=== PATIENT | male | born 1940 | race Caucasian/White ===

== ENCOUNTER 2017-02-02 16:47 | Inpatient (IN) | payer MEDICARE ==
[~2017-02-02] VITALS: Ht 175.3 cm; Wt 87.0 kg
[2017-02-02 16:50] VITALS: BP 135/75; PULSE 62; RESP 20; TEMP 98.4; O2SAT 98
[2017-02-02] MEDS ORDERED: LISI10TA3 PO (17:21)
[2017-02-02] MEDS ORDERED: CARV6.252 PO (17:21)
[2017-02-02] MEDS ORDERED: MULTTAB67 PO (17:21)
[2017-02-02] MEDS ORDERED: ATOR20TA15 PO (17:21)
[2017-02-02] MEDS ORDERED: ASPI81CH CHEW ×2 (17:21)
[2017-02-02] MEDS ORDERED: FURO20TA PO (17:21)
[2017-02-02] MEDS ORDERED: AMLO5TAB2 PO (17:21)
[2017-02-02] MEDS ORDERED: FISHCAP4 PO (17:21)
[2017-02-02] MEDS ORDERED: MAGN400T2 PO (17:21)
[2017-02-02] MEDS ORDERED: AMIO0.1T PO (17:21)
[2017-02-02] MEDS ORDERED: METO100T PO (17:21)
[2017-02-02] MEDS ORDERED: SODIUM CHLORIDE 0.9% FLUSH 10 ML FLUSH IVF PRN (17:30)
--- NOTE | 2017-02-02 17:31 | PD ---
HPI Chief Complaint: Cardiac Complaint Time Seen by Provider: 17:10 Travel History International Travel<30 days: No Contact w/Intl Traveler<30days: No Traveled to known affect area: No History of Present Illness HPI Patient was sent by his local sales associate for admission to the hospital after his defibrillator is firing intermittently over the past 2 weeks with exertion. Patient's supposed have an ablation and pacemaker replaced per family. Patient denies any symptoms currently. Patient denies any chest pain, shortness breath , fever, nausea, vomiting, abdominal pain, or headaches. Patient denies any other medical concerns at this time. PFSH Past Medical History Hx Anticoagulant Therapy: Yes (162 APSIRIN A DAY) Arthritis: No Asthma: No Autoimmune Disease: No Heart Rhythm Problems: No Cardiovascular Problems: Yes (PACER/DEFIB) Chest Pain: Yes Congestive Heart Failure: No COPD: No Cerebrovascular Accident: No Diabetes: No GERD: No Glaucoma: No Headaches: No Hepatitis: No Hiatal Hernia: No Hypertension: Yes Kidney Stones: No Medical other: Yes (pace/defib) Myocardial Infarction: No Renal Failure: No Seizures: No Sleep Apnea: No Thyroid Disease: No Ulcer: No Past Surgical History Abdominal Surgery: No AICD: No Cardiac Surgery: No Coronary Artery Bypass Graft: Yes Ear Surgery: No Endocrine Surgery: No Eye Surgery: No Genitourinary Surgery: No Gynecologic Surgery: No Oral Surgery: No Pacemaker: No Thoracic Surgery: No Social History Alcohol Use: No Tobacco Use: No Substance Use: No Allergies-Medications (Allergen,Severity, Reaction): Coded Allergies: Corticosteroids (Verified Allergy, Intermediate, 02/02/17) hallucinations Reported Meds & Prescriptions Reported Meds & Active Scripts Active Reported Metoprolol Tartrate 100 Mg Tab 100 Mg PO BID Atorvastatin (Atorvastatin Calcium) 20 Mg Tab 20 Mg PO HS Amlodipine (Amlodipine Besylate) 5 Mg Tab 5 Mg PO DAILY Carvedilol 6.25 Mg Tab 6.25 Mg PO BID Amiodarone (Amiodarone HCl) 100 Mg Tab 100 Mg PO BID Lisinopril 10 Mg Tab 10 Mg PO DAILY Furosemide 20 Mg Tab 20 Mg PO DAILY Magnesium Oxide 400 Mg Tab 400 Mg PO DAILY Multiple Vitamin 1 Tab 1 Tab PO DAILY Fish Oil + D3 (Fish Oil-Cholecalciferol) 1,200-1,000 Mg-Unit Cap 1 Cap PO DAILY Aspirin 81 Mg Chew 162 Mg CHEW DAILY Aspirin 81 Mg Chew 81 Mg CHEW DAILY Review of Systems Except as stated in HPI: all other systems reviewed are Neg Physical Exam Narrative GENERAL: Well-developed, overly nourished, in no acute distress, and non-ill appearing. SKIN: Focused skin assessment warm and dry. HEAD: Atraumatic. Normocephalic. ENT: No nasal bleeding or discharge. Mucous membranes pink and moist. NECK: Trachea midline. No JVD. Supple. No nuclear rigidity. CARDIOVASCULAR: Regular rate and rhythm. No murmur appreciated. RESPIRATORY: No accessory muscle use. No respiratory distress. Clear to auscultation. Breath sounds equal bilaterally. MUSCULOSKELETAL: No obvious deformities. No clubbing. No cyanosis. No edema. Full range of motion. NEUROLOGICAL: Awake and alert. No obvious cranial nerve deficits. Motor grossly within normal limits. Normal speech. PSYCHIATRIC: Appropriate mood and affect; insight and judgment normal. Data Data Last Documented VS Vital Signs Date Time Temp Pulse Resp B/P Pulse Ox O2 Delivery O2 Flow Rate FiO2 02/02/17 17:32 97 Room Air 02/02/17 16:50 98.4 62 20 135/75 Orders Electrocardiogram (02/02/17 17:20) Basic Metabolic Panel (Bmp) (02/02/17 17:20) Complete Blood Count With Diff (02/02/17 17:20) Magnesium (Mg) (02/02/17 17:20) Prothrombin Time / Inr (Pt) (02/02/17 17:20) Act Partial Throm Time (Ptt) (02/02/17 17:20) Chest, Single Ap (02/02/17 17:20) Ecg Monitoring (02/02/17 17:20) Iv Access Insert/Monitor (02/02/17 17:20) Oximetry (02/02/17 17:20) Oxygen Administration (02/02/17 17:20) Sodium Chloride 0.9% Flush (Ns Flush) (02/02/17 17:30) Consult Cardiology (02/02/17 ) (Hub Use Only)In Phy Cons/Ref (02/02/17 ) Labs Laboratory Tests Test 02/02/17 17:30 White Blood Count 11.9 TH/MM3 Red Blood Count 4.56 MIL/MM3 Hemoglobin 14.1 GM/DL Hematocrit 43.1 % Mean Corpuscular Volume 94.5 FL Mean Corpuscular Hemoglobin 30.9 PG Mean Corpuscular Hemoglobin 32.7 % Concent Red Cell Distribution Width 13.7 % Platelet Count 187 TH/MM3 Mean Platelet Volume 9.2 FL Neutrophils (%) (Auto) 76.6 % Lymphocytes (%) (Auto) 14.7 % Monocytes (%) (Auto) 6.4 % Eosinophils (%) (Auto) 1.7 % Basophils (%) (Auto) 0.6 % Neutrophils # (Auto) 9.1 TH/MM3 Lymphocytes # (Auto) 1.7 TH/MM3 Monocytes # (Auto) 0.8 TH/MM3 Eosinophils # (Auto) 0.2 TH/MM3 Basophils # (Auto) 0.1 TH/MM3 CBC Comment DIFF FINAL Differential Comment Prothrombin Time 10.6 SEC Prothromb Time International 1.0 RATIO Ratio Activated Partial 24.0 SEC Thromboplast Time Sodium Level 142 MEQ/L Potassium Level 3.9 MEQ/L Chloride Level 106 MEQ/L Carbon Dioxide Level 29.7 MEQ/L Anion Gap 6 MEQ/L Blood Urea Nitrogen 29 MG/DL Creatinine 1.95 MG/DL Estimat Glomerular Filtration 33 ML/MIN Rate Random Glucose 128 MG/DL Calcium Level 9.1 MG/DL Magnesium Level 2.5 MG/DL MDM Medical Decision Making Medical Screen Exam Complete: Yes Emergency Medical Condition: Yes Interpretation(s) EKG reviewed by Dr. William shows paced rhythm with ventricular rate of 66. Differential Diagnosis Chest pain secondary to defibrillator misfiring, flexion abnormality, pneumonia , other Narrative Course Patient was seen and examined. Initial laboratory radiologic studies were ordered. Discussed patient with Dr. Gunn, who does not feel there any additional tests needed to be performed and states he will patient in consult is wanting medicine to admit. Admitting was contacted to try and find admitting orders patient's family reports was sent over, but they were not able to be found. Discussed all findings and plan of care with patient who is agreeable for admission. All questions were answered. Discussed patient with Dr. William , who is in agreement with plan of care and disposition. Physician Communication Physician Communication [address] Gunn, is not requesting additional testing than what was already ordered. States he'll come by and see the patient in the ER as a consult. [id number] Collins, who is agreeable to admit the patient. Diagnosis Primary Impression: Disorder of defibrillator function Qualified Code: T82.198D - Disorder of defibrillator function, subsequent encounter Additional Impression: Renal insufficiency Admitting Information Admitting Physician Requests: Admit Condition: Stable Phoenix Hester Feb 02, 2017 17:31
[2017-02-02 17:32] VITALS: O2SAT 97
[2017-02-02 17:54] LABS: AUTOMATED NEUTROPHIL # 9.1 TH/MM3 (1.8-7.7); BASOPHIL # 0.1 TH/MM3 (0-0.2); BASOPHIL % 0.6 % (0.0-2.0); EOSINOPHIL # 0.2 TH/MM3 (0-0.4); EOSINOPHIL % 1.7 % (0.0-4.0); HEMATOCRIT 43.1 % (39.0-51.0); HEMO FLAGS DIFF FINAL; LYMPH % 14.7 % (9.0-44.0); LYMPHOCYTE # 1.7 TH/MM3 (1.0-4.8); MEAN CELL VOLUME 94.5 FL (80.0-100.0); MEAN CORPUSCULAR HEMOGLOBIN 30.9 PG (27.0-34.0); MEAN CORPUSCULAR HGB CONC 32.7 % (32.0-36.0); MONO % 6.4 % (0.0-8.0); NEUT % 76.6 % (16.0-70.0); PLATELET COUNT 187 TH/MM3 (150-450); RED BLOOD COUNT 4.56 MIL/MM3 (4.50-5.90); RED CELL DISTRIBUTION WIDTH 13.7 % (11.6-17.2); WHITE BLOOD COUNT 11.9 TH/MM3 (4.0-11.0)
[2017-02-02 18:03] LABS: PROTHROMBIN TIME - PATIENT 10.6 SEC (9.8-11.6)
--- NOTE | 2017-02-02 18:05 | RADRPT ---
EXAM DATE/TIME: 02/02/2017 17:33 [facility] COMPARISON: No previous studies available for comparison. INDICATIONS : Chest pain MEDICAL HISTORY : Hypertension. SURGICAL HISTORY : CABG. Pacemaker. ENCOUNTER: Initial ACUITY: 1 day PAIN SCORE: 4/10 LOCATION: Bilateral chest FINDINGS: Median sternotomy wires are noted status post cardiac surgery. A left subclavian multilead pacemaker has its tips in the right atrium and right ventricle. There is no pneumothorax. The heart is mildl y prominent. The pulmonary vascular pattern is normal. The lungs are clear. CONCLUSION: 1. Cardiomegaly. 2. No acute focal pulmonary infiltrate or pulmonary vascular congestion. Duncan Ortiz MD on February 02, 2017 at 17:58 Board Certified Radiologist. This report was verified electronically.
[2017-02-02 18:22] LABS: BICARBONATE 29.7 MEQ/L (21.0-32.0); MAGNESIUM 2.5 MG/DL (1.5-2.5); POTASSIUM 3.9 MEQ/L (3.5-5.1)
[2017-02-02] MEDS ORDERED: NS + KCL 20 MEQ INJ 1,000 ML IV SCH (20:30)
--- NOTE | 2017-02-02 20:33 | HHI.HP ---
HPI Service [facility] Hospitalists Primary Care Physician Vicente Cohen MD Admission Diagnosis chest pain secondary to defibrillator firing Chief Complaint: Defib firing, sent from his lisw's office (DR COHEN) Travel History International Travel<30 Days: No Contact w/Intl Traveler <30 Da: No Traveled to Known Affected Are: No History of Present Illness Patient with known history of coronary disease and status post defibrillator placement in April 2016 was sent by his lisw for admission to the hospital after his defibrillator has been firing intermittently over the past 2 weeks with or without exertion. He reports that he has had up to 18 firings of device in 1 day. Patient's was supposed have an ablation and pacemaker replaced per family today. Patient denies any symptoms currently, but notes that he does have chest pressure and pain when the defibrillator fires. Patient denies any chest pain, shortness breath, fever, nausea, vomiting, abdominal pain, or headaches. On my exam he is resting comfortably and having no pain whatsoever. He is just anxious to have the procedure done as he is understandably worried about the recurrent somewhat unpredictable firings of his device. Review of Systems Constitutional: DENIES: Diaphoretic episodes, Fatigue, Fever, Weight gain, Weight loss, Chills, Dizziness, Change in appetite, Night Sweats Endocrine: DENIES: Heat/cold intolerance, Polydipsia, Polyuria, Polyphagia Eyes: DENIES: Blurred vision, Diplopia, Eye inflammation, Eye pain, Vision loss , Photosensitivity, Double Vision Ears, nose, mouth, throat: DENIES: Tinnitus, Hearing loss, Vertigo, Nasal discharge, Oral lesions, Throat pain, Hoarseness, Ear Pain, Running Nose, Epistaxis, Sinus Pain, Toothache, Odynophagia Respiratory: DENIES: Apneas, Cough, Snoring, Wheezing, Hemoptysis, Sputum production, Shortness of breath Cardiovascular: COMPLAINS OF: Chest pain, DENIES: Palpitations, Syncope, Dyspnea on Exertion, PND, Lower Extremity Edema, Orthopnea, Claudication Gastrointestinal: DENIES: Abdominal pain, Black stools, Bloody stools, BRB per rectum, Constipation, Diarrhea, GERD, Nausea, Reflux, Vomiting, Difficulty Swallowing, Anorexia, See HPI Musculoskeletal: COMPLAINS OF: Joint pain Integumentary: DENIES: Abnormal pigmentation, Nail changes, Pruritus, Rash Hematologic/lymphatic: COMPLAINS OF: Bruising Neurologic: DENIES: Abnormal gait, Headache, Localized weakness, Paresthesias, Seizures, Speech Problems, Tremor, Poor Balance Psychiatric: COMPLAINS OF: Anxiety Past Family Social History Past Medical History Hypertension Coronary artery disease with prior [place] Questionable history of CHF after the [place] Prediabetes Dyslipidemia Hypomagnesemia Dysrhythmia Past Surgical History Coronary Stent placed in approximately 2006 Pacer defibrillator placement April 2016 Coronary artery bypass graft 4 vessels around 2011 Appendectomy Reported Medications Metoprolol Tartrate 100 Mg Tab 100 Mg PO BID Atorvastatin (Atorvastatin Calcium) 20 Mg Tab 20 Mg PO HS Amlodipine (Amlodipine Besylate) 5 Mg Tab 5 Mg PO DAILY Carvedilol 6.25 Mg Tab 6.25 Mg PO BID Amiodarone (Amiodarone HCl) 100 Mg Tab 100 Mg PO BID Lisinopril 10 Mg Tab 10 Mg PO DAILY Furosemide 20 Mg Tab 20 Mg PO DAILY Magnesium Oxide 400 Mg Tab 400 Mg PO DAILY Multiple Vitamin 1 Tab 1 Tab PO DAILY Fish Oil + D3 (Fish Oil-Cholecalciferol) 1,200-1,000 Mg-Unit Cap 1 Cap PO DAILY Aspirin 81 Mg Chew 162 Mg CHEW DAILY Aspirin 81 Mg Chew 81 Mg CHEW DAILY Allergies: Coded Allergies: Corticosteroids (Verified Allergy, Intermediate, 02/02/17) hallucinations Family History No heart disease to his knowledge Social History Born and raised in [place] No tobacco in 30 years prior to that smoked about half to three quarters of a pack per day for about 25 years Occasionally drinks wine but no other alcohol Denies illicit drug use Lives with his and they've been for nearly 55 years 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 SKIN: No rashes, ecchymoses or lesions. Cool and dry. HEAD: Atraumatic. Normocephalic. No temporal or scalp tenderness. EYES: Pupils equal round and reactive. Extraocular motions intact. No scleral icterus. No injection or drainage. ENT: Nose without bleeding, purulent drainage or septal hematoma. Throat without erythema, tonsillar hypertrophy or exudate. Uvula midline. Airway patent. NECK: Trachea midline. No JVD or lymphadenopathy. Supple, nontender, no meningeal signs. CARDIOVASCULAR: Regular rate and rhythm without murmurs, gallops, or rubs. RESPIRATORY: Clear to auscultation. Breath sounds equal bilaterally. No wheezes , rales, or rhonchi. GASTROINTESTINAL: Abdomen soft, non-tender, nondistended. No hepato-splenomegaly , or palpable masses. No guarding. MUSCULOSKELETAL: Extremities without clubbing, cyanosis, or edema. No joint tenderness, effusion, or edema noted. No calf tenderness. Negative Homans sign bilaterally. NEUROLOGICAL: Awake and alert. Cranial nerves II through XII intact. Motor and sensory grossly within normal limits. Five out of 5 muscle strength in all muscle groups. Normal speech. Laboratory Laboratory Tests Test 02/02/17 17:30 White Blood Count 11.9 Red Blood Count 4.56 Hemoglobin 14.1 Hematocrit 43.1 Mean Corpuscular Volume 94.5 Mean Corpuscular Hemoglobin 30.9 Mean Corpuscular Hemoglobin 32.7 Concent Red Cell Distribution Width 13.7 Platelet Count 187 Mean Platelet Volume 9.2 Neutrophils (%) (Auto) 76.6 Lymphocytes (%) (Auto) 14.7 Monocytes (%) (Auto) 6.4 Eosinophils (%) (Auto) 1.7 Basophils (%) (Auto) 0.6 Neutrophils # (Auto) 9.1 Lymphocytes # (Auto) 1.7 Monocytes # (Auto) 0.8 Eosinophils # (Auto) 0.2 Basophils # (Auto) 0.1 CBC Comment DIFF FINAL Differential Comment Prothrombin Time 10.6 Prothromb Time International 1.0 Ratio Activated Partial 24.0 Thromboplast Time Sodium Level 142 Potassium Level 3.9 Chloride Level 106 Carbon Dioxide Level 29.7 Anion Gap 6 Blood Urea Nitrogen 29 Creatinine 1.95 Estimat Glomerular Filtration 33 Rate Random Glucose 128 Calcium Level 9.1 Magnesium Level 2.5 Result Diagram: 02/02/17 1730 02/02/17 1730 Imaging Last 72 hours Impressions Chest X-Ray 02/02/17 1720 Signed Impressions: Service Date/Time: Thursday, February 02, 2017 17:33 - CONCLUSION: 1. Cardiomegaly. 2. No acute focal pulmonary infiltrate or pulmonary vascular congestion. Duncan Ortiz MD Assessment and Plan Problem List: (1) Disorder of defibrillator function Status: Acute Plan: We have been asked to admit the patient to the medicine service by Dr. Cohen per discussion with ER healthcare provider. This issue will obviously be managed primarily by Dr. Cohen Continue on telemetry. (2) Renal insufficiency Status: Acute Plan: I do not know the patient's baseline. We'll gently hydrate overnight and recheck tomorrow. Like to keep his potassium between 4 and 5. (3) Hypertension Status: Chronic Plan: Fair control. Continue some of his medication from home. (4) Dyslipidemia Status: Chronic Plan: Continue medication. (5) Prediabetes Status: Chronic Plan: No longer on metformin. We'll watch diet closely. Outpatient follow-up. Code Status . Full Discussed Condition With Patient, his , his daughter and ER healthcare provider. Physician Certification 2 Midnight Certification Type: Admission for Inpatient Services Order for Inpatient Services The services are ordered in accordance with Medicare regulations or non- Medicare payer requirements, as applicable. In the case of services not specified as inpatient-only, they are appropriately provided as inpatient services in accordance with the 2-midnight benchmark. Estimated LOS (days): 2 days is the estimated time the patient will need to remain in the hospital, assuming treatment plan goals are met and no additional complications. Post-Hospital Plan: Home Problem Qualifiers (1) Disorder of defibrillator function: Qualified Code: T82.198D - Disorder of defibrillator function, subsequent encounter Guru Collins MD PhD Feb 02, 2017 20:33
[2017-02-02] MEDS ORDERED: PILL SPLITTER OTHER PRN (20:45)
[2017-02-02 21:30] VITALS: BP 142/76; PULSE 64; RESP 18; TEMP 98.6; O2SAT 97
--- NOTE | 2017-02-02 21:57 | EKG ---
Date Performed: 02/02/2017 Time Performed: 17:13:42 PTAGE: 76 years EKG: ELECTRONIC ATRIAL PACEMAKER ELECTRONIC VENTRICULAR PACEMAKER ABNORMAL RHYTHM ECG NO PREVIOUS TRACING DOCTOR: Jaylen Gibbs Interpretating Date/Time 02/02/2017 21:56:45
[2017-02-02 22:00] VITALS: PULSE 64
[2017-02-02 22:24] LABS: MAGNESIUM 2.5 MG/DL (1.5-2.5)
[2017-02-02] MEDS: ATORVASTATIN 20 MG TAB PO SCH (22:30)
[2017-02-02] MEDS: AMIODARONE 200 MG TAB PO SCH (22:30)
[2017-02-02 23:00] VITALS: PULSE 62
[2017-02-03] VITALS (29 sets, daily range): BP systolic 103–145; BP diastolic 52–80; PULSE 42–76; RESP 18–20; TEMP 97.2–98.2; O2SAT 95–100
[2017-02-03] MEDS: TEMAZEPAM 15 MG CAP PO PRN ×2 (00:06→21:28)
[2017-02-03 06:32] LABS: ALKALINE PHOSPHATASE 55 U/L (45-117); TOTAL BILIRUBIN ADULT 0.5 MG/DL (0.2-1.0)
[2017-02-03 06:34] LABS: ALT (GPT) 28 U/L (12-78); ANION GAP 6 MEQ/L (5-15); AST (GOT) 22 U/L (15-37); BICARBONATE 30.1 MEQ/L (21.0-32.0); BLOOD UREA NITROGEN 27 MG/DL (7-18); CHLORIDE 111 MEQ/L (98-107); GLOMERULAR FILTRATION RATE 42 ML/MIN (>89); POTASSIUM 4.2 MEQ/L (3.5-5.1); SODIUM (NA) 147 MEQ/L (136-145)
--- NOTE | 2017-02-03 08:15 | HHI.PR ---
Subjective Remarks doing great. feels well. Objective Vitals heart reg lung cta abd s/nt ext no edema Vital Signs Date Time Temp Pulse Resp B/P Pulse Ox O2 Delivery O2 Flow Rate FiO2 02/03/17 07:00 64 02/03/17 07:00 97.6 72 20 132/78 99 02/03/17 06:00 68 02/03/17 05:00 64 02/03/17 04:30 65 02/03/17 04:30 97.9 67 18 130/76 100 02/03/17 04:00 70 02/03/17 03:00 66 02/03/17 02:00 64 02/03/17 01:00 66 02/03/17 00:30 97.2 76 18 119/66 98 02/02/17 23:00 62 02/02/17 22:00 64 02/02/17 21:30 98.6 64 18 142/76 97 02/02/17 21:30 64 02/02/17 17:32 97 Room Air 02/02/17 17:32 97 Room Air 02/02/17 16:50 98.4 62 20 135/75 98 Room Air 02/02/17 02/02/17 02/03/17 15:00 23:00 07:00 Intake Total 1003 ml Output Total 150 ml Balance 853 ml Intake Oral 480 ml IV Total 523 ml Output Urine Total 150 ml Result Diagram: 02/02/17 1730 02/03/17 0446 Imaging Last 72 hours Impressions Chest X-Ray 02/02/17 1720 Signed Impressions: Service Date/Time: Thursday, February 02, 2017 17:33 - CONCLUSION: 1. Cardiomegaly. 2. No acute focal pulmonary infiltrate or pulmonary vascular congestion. 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 currently paced on monitor last firing was yesterday on way to ED. await further management per Dr Velia dewey current meds. (2) Renal insufficiency Status: Acute Plan: shorty improved with ivf. monitor. (3) Hypertension Status: Chronic Plan: resume home meds monitor (4) Dyslipidemia Status: Chronic Plan: Continue medication. (5) Prediabetes Status: Chronic Plan: No longer on metformin. Problem Qualifiers (1) Disorder of defibrillator function: Qualified Code: T82.198D - Disorder of defibrillator function, subsequent encounter Lakhwinder Sommers MD Feb 03, 2017 08:14
[2017-02-03] MEDS: ASPIRIN 81 MG CHEW TAB CHEW SCH (09:18)
[2017-02-03] MEDS: LISINOPRIL 10 MG TAB PO SCH (09:18)
[2017-02-03] MEDS: MULTIVITAMIN TAB PO SCH (09:19)
[2017-02-03] MEDS: MAGNESIUM OXIDE 400 MG TAB PO SCH (09:19)
[2017-02-03] MEDS: AMIODARONE 200 MG TAB PO SCH ×2 (09:19→21:28)
[2017-02-03] MEDS ORDERED: SODIUM CHLORID 0.9% 500 ML INJ 500 ML IV SCH ×2 (13:00)
--- NOTE | 2017-02-03 13:18 | MB ---
cc: GERTRUDE COHEN M.D. DATE OF CONSULTATION 02/03/2017 REASON FOR CONSULTATION Recurrent defibrillatory shock. HISTORY Mr. Lozano is a 76-year-old gentleman with a history of coronary artery disease. He has a previous defibrillator implanted in April 2016 due to recurrent ventricular tachycardia. For the past couple of weeks, he was having recurrent defibrillatory shock. Nuclear stress study was performed that indicated unstable anterolateral scar and no ischemia. The patient was discharged from the main hospital. Yesterday he receive at least three defibrillatory shock. Device was reprogrammed. All the ventricular tachycardia was in the 130s. The patient was admitted for evaluation. I was consulted for further management. The chart was reviewed. The patient was evaluated. ALLERGIES CORTICAL STEROIDS SOCIAL HISTORY Negative for smoking and drinking. FAMILY HISTORY Noncontributory to his current medical condition. MEDICATIONS 1. Metoprolol 100 mg twice a day 2. Atorvastatin and 20 mg a day 3. Amlodipine 5 mg a day 4. Coreg 6.25 mg a day 5. Amiodarone 100 mg twice a day 6. Lisinopril 10 mg a day 7. Lasix 20 mg a day 8. Magnesium 9. Aspirin REVIEW OF SYSTEMS Currently, the patient refers recurrent episode of dizziness and palpitation and defibrillatory shock, but no fever. PHYSICAL EXAM Alert, fully oriented gentleman who is depressed. VITAL SIGNS: Blood pressure is 126/69, pulse 71, respiratory rate is 18. LUNGS: Ventilated. CARDIOVASCULAR: S1-S2 regular. No gallop. ABDOMEN: Soft. No mass. EXTREMITIES: No edema. Electrocardiogram shows AV sequential pacing. LABORATORY DATA Hemoglobin is 14.1, white blood cell 11.9, potassium 4.2, creatinine 1.60 improving. INR is 1.0. ASSESSMENT AND RECOMMENDATIONS Mr. Lozano has recurrent defibrillatory shock. He has slow VT. He is on amiodarone, metoprolol and Coreg. He is on two different beta blockers. I will DC the Coreg and keep him on the Metoprolol. Electrophysiology study and ablation discussed with him and his family. Ejection fraction is 15%. The risks, the nature and the benefit of the procedure are clearly stated to them. The risks include pneumothorax, cardiac perforation, stroke and even . They understood and agreed to proceed. Also, the gentleman has a wide prior complexed pacing over 40% of the time. He is in heart failure class III. The defibrillator will need to be upgraded to a biventricular pacer defibrillator. First I am going to proceed with VT ablation and then subsequently device will be upgraded in another day. This gentleman's condition is of care. Prognosis is guarded. As mentioned before, the case extensively discussed with him, his and his daughter. MD CORBIN Lr/SONAM /1:00 PM /1:15 PM
[2017-02-03] MEDS ORDERED: PROPOFOL 200 MG/20 ML AMP IV ONE (15:01)
[2017-02-03] MEDS ORDERED: IOHEXOL 350 MG/ML 50 ML BTL (for Cath Lab) IV ONE (15:44)
[2017-02-03] MEDS ORDERED: HEPARIN-NS/PF INJ 500 ML ONE (15:47)
[2017-02-03] MEDS ORDERED: LEVOFLOXACIN 500 MG PREMIX INJ 100 ML IV ONE (16:40)
--- NOTE | 2017-02-03 18:44 | CATHPROC ---
[facility] HIS Report Study Information Study Number Scheduled Start Study Start [id number] 02/03/2017 Feb 03 2017 3:20PM Referring Institution Admit Source Facility Department 1 Other [facility] - Adjunct Writing Instructor Physician and Clinical Staff Initial Vicente Nava Corn Husker Machine Operator Bg Gaspar,RT(R) Corn Husker Machine Operator Marcia Dela Cruz,RT(R) TECH2 Other Anesthesia, MEDIA REPORTER Recorder Niya Pelaez,ALEXANDR Recorder Nathalia Romano,ALEXANDR Recorder Hellen Charles,ALEXANDR Scrub Frances Wheat RCIS Procedures Performed Procedure Location (Site) Vessel Name Ablation Procedure Cardioversion ICE CATHETER INSERT Fem Vein (left) Femoral Vein RF Ablation RV Ventricle Wire insertion Fem Art (right) Femoral Art Equipment Time [employer] Unified Communications Engineer Description Size Mfg Part Number Used/Scraped [employer] 17:10 SHEATH, FR8 24CM 8FR 24CM [id number] Used INC. BIOSENSE SMITH CATHETER, THERMOCOOL NON- [id number] 15:27 Used INC. DORETHA TC D-F *[id number] BIOSENSE SMITH 16:01 SET, TUBING COOLFLOW * [id number] Used INC. 534-550S *[id number] 15:26 CORDIS/PACER SHEATH, FR10 SHARMILA 11CM FR 10 [id number] Used WIRE, HYDROSTEER 150CM [id number] 17:00 DAIG/[facility] 150CM Used ANGLED GLIDE *[id number] 15:24 Relationship Science INDUSTRIES PACK, CCL CUSTOM * Used *[id number] 15:24 MEDLINE PACER DECKER, LIMB * 2530 *[id number] Used [id number] 15:26 reMail MEDICAL SHEATH, FR4.5 PRELUDE 11CM FR 4.5 Used [id number] 16:46 reMail MEDICAL WIRE, 3MMJ .035 180CM 180CM Used *[id number] 15:27 NAMIC TUBING, HIGH PRESSURE 48" 48" Used *[id number] 15:27 NAMIC TUBING, HIGH PRESSURE 48" 48" Used *[id number] 17:01 NYCOMED OMNIPAQUE, 350 MG, 50ML 50ML [id number] Used [id number] 15:24 [place] [employer] BL[employer]ET,WARM AIR CCL * Used *[id number] 16:47 [facility] CATHETER, JSN, QUAD FR 5 Used *[id number] 16:47 [facility] CATHETER, JSN, QUAD FR 5 Used *[id number] [id number] 16:47 [facility] CATHETER, JSN, QUAD FR 5 Used *[id number] 15:24 [facility] ELECTRODE KIT, DORETHA X SURFACE * [id number] Used 15:25 [facility] SHEATH, EPS, FR6 FAST CATH FR 6 [id number] Used 15:25 [facility] SHEATH, EPS, FR6 FAST CATH FR [address] [id number] Used 15:25 [facility] SHEATH, EPS, FR7 FAST CATH FR 7 [id number] Used 15:25 [facility] SHEATH, EPS, FR8 FAST CATH FR 8 [id number] Used CATHETER, ACUNAV FR10 ICE [id number] 15:27 [place] FR 10 Used (ELMIRA) *[id number] [facility] PAD, ELECTROSURGICAL 15:24 * [id number] *[id number] Used SURGICAL GROUNDING (BLUE) Equipment Model, Serial, Lot Number and Expiration Data Description Model Number Serial Number Lot Number Expiration Date SHEATH, FR4.5 PRELUDE 11CM [id number] 11-22-2019 Labs Hgb (g/dl) Hct (%) RBC (MIL/MM3) WBC (l/cumm) Platelets (thousands) 12.00-18.00 37.00-55.00 4.80-6.20 4.80-10.80 140.00-450.00 14.0 43 4.5 11.9 187 Glucose (mg/dl) BUN (mg/dl) Creatinine (mg/dl) BUN:Creatinine (1:x) 60.00-110.00 8.00-20.00 0.10-9.00 10.00-20.00 87 4.2 1.6 2.6 Na (meq/l) K (meq/l) 138.00-146.00 3.80-5.10 147 4.2 INR (PTT:PT) 0.50-2.00 1 CPK-MB (ng/ML) 0.00-7.00 Not Drawn Medication Medication Total Dose (Bolus/Oral) Medication Total Dosage/Unit 1% XYLOCAINE 20 mL HEPARIN 6000 units PROTAMINE 40 mg Medications (Bolus/Oral) Medication Time Given Dosage/Unit Administered By Reason 1% XYLOCAINE 02/03/2017 4:35:13 PM 20 mL Vicente Gunn 20 mL 1% XYLOCAINE given in lab by Vicente Gunn in Left Groin via Subcutaneous. HEPARIN 02/03/2017 4:43:18 PM 4000 units Anesthesia, MEDIA REPORTER 4000 units HEPARIN given in lab by Anesthesia, MEDIA REPORTER via Peripheral IV. Ordered by Vicente Gunn. HEPARIN 02/03/2017 5:28:22 PM 2000 units Anesthesia, MEDIA REPORTER 2000 units HEPARIN given in lab by Anesthesia, MEDIA REPORTER via Peripheral IV. Ordered by Vicente Gunn. PROTAMINE 02/03/2017 6:27:53 PM 40 mg Anesthesia, MEDIA REPORTER 40 mg PROTAMINE given in lab by Anesthesia, MEDIA REPORTER via Peripheral IV. Ordered by Vicente Gunn. Medication (Drip) Medication Time Given Dosage/Unit Concentration/Unit Diluent (ml) Solution LEVAQUIN 02/03/2017 4:44:27 PM 100 mL/hr 500 100 NaCl .9 100 mL/hr LEVAQUIN given in lab by Anesthesia, MEDIA REPORTER via Peripheral IV. Pump/Drip Flow = 0 ml/hr using NaCl .9 with a concentration of 500 in 100 ml. Ordered by Vicente Gunn. Initial Case Assessment Cardiovascular HR Rhythm NIBP Chest Pain 62 SR 177/84 0 Edema Present Skin color Skin None Normal Warm Dry Circulatory - Right Pulses Dorsalis Pedis Radial 2 2 Scale (0,1,2,3,4,d) Circulatory - Left Pulses Dorsalis Pedis Radial 2 2 Scale (0,1,2,3,4,d) Circulatory - Lower Extremities Color Lower Right Color Lower Left Normal Normal Neurological State Oriented to time-place- Alert Moves all extremities person Respiration - General Respiration Rate SpO2 (%) (B/min) 16 99 Chronological Log Time Study Chronological Log 15:44:07 Patient arrived via Bed. 15:44:08 Patient Name, D.O.B, / Armband Verified By R.N. 15:44:09 Consent signed by the physician and the patient and verified by the Adjunct Writing Instructor staff. 15:44:09 Pre-op and post- op instructions given; patient acknowledges understanding of instructions. 15:44:10 Verbal Stimulation=2 Physical Stimulation=2 Airway=2 Respiration=2 TOTAL=8. (0=absent, 1=li mited, 2=present) 15:44:11 Anesthesia at bedside. Assumes care of patient. PREMA Finney 15:44:15 Patient has been NPO for More than 6Hrs. 15:44:15 Skin Breakdown- none noted per pt. 15:44:16 Patient Warmer Placed on the Table. 15:44:17 Disposable Defibrillator Pads Placed On Patient. 15:44:18 Robert Prominences Protected 15:44:20 A # 20 IV was noted in the Antecubital (right). Grade = 0 0.9 NS KVO 15:44:21 A # 20 IV was noted in the Antecubital (left). Grade = 0 0.9NS KVO 15:44:22 History and physical on the chart or being dictated. 15:55:57 Presedation assessment performed by Adjunct Writing Instructor RN. Assessment: Initial Case, HR=62 BPM, Rhythm=SR, ZLFO=091/84 mmhg, Chest Pain=0, Edema=None, Col or=Normal, Skin = Warm, Dry Right Pulses: Sulaiman Ped=2, Radial=2 Left Pulses: Sulaiman Ped=2, Radial=2 15:56:22 Lower Right Extremities: Color=Normal Lower Left Extremities: Color=Normal Neurological: State=Alert, Ox3, JESUS Respiration: Resp=16 B/min, SpO2=99 % 15:58:18 Table restraints applied according to hospital policy 15:58:26 Bilateral groins prepped with 2% chlorhexidine, and with a 3 min. waiting time. 16:01:58 [address] off by [facility] rep per verbal order/Dr. Gunn 16:10:56 Anesthesiologist present for intubation. 16:17:27 MD paged 16:30:41 MD arrived. Time Out. Correct patient, procedure, procedure equipment, site and side verified with physicia n present. Time 16:34:16 concurred by MD, individual staff and MEDIA REPORTER. Time Out #2 - Consents verified, patient in correct position, all results are labled and displa yed, safety precautions 16:34:17 taken, antibiotics administered. Time out concurred by MD, individual staff and MEDIA REPORTER in procedu re 16:34:18 Case Start 16:34:22 Beginning of case Body Temp 36.7 16:35:13 20 mL 1% XYLOCAINE given in lab by Vicente Gunn in Left Groin via Subcutaneous. 16:38:48 Vascular access was obtained in the Fem Vein (left). 16:38:49 Vascular access was obtained in the Fem Vein (left). 16:38:50 Vascular access was obtained in the Fem Vein (left). 16:39:04 Vascular access was obtained in the Fem Art (right). 16:39:28 Vascular access was obtained in the Fem Art (left). 16:39:47 Vascular access was obtained in the Fem Vein (right). 16:39:54 A SHEATH, FR4.5 PRELUDE 11CM FR 4.5 was advanced into the Fem Art (right) using the Modifie d Seldinger technique. 16:40:11 A SHEATH, EPS, FR8 FAST CATH FR 8 was advanced into the Fem Art (left) using the Modified S eldinger technique. 16:40:33 A SHEATH, EPS, FR6 FAST CATH FR 6 was advanced into the Fem Vein (left) using the Modified Seldinger technique. 16:40:46 A SHEATH, EPS, FR7 FAST CATH FR 7 was advanced into the Fem Vein (left) using the Modified Seldinger technique. 16:40:56 A SHEATH, FR10 SHARMILA 11CM FR 10 was advanced into the Fem Vein (left) using the Modified S eldinger technique. 16:41:03 A SHEATH, EPS, FR6 FAST CATH FR 6 was advanced into the Fem Vein (right) using the Modified Seldinger technique. 16:43:18 4000 units HEPARIN given in lab by Anesthesia, MEDIA REPORTER via Peripheral IV. Ordered by Yimi Gunn. 100 mL/hr LEVAQUIN given in lab by Anesthesia, MEDIA REPORTER via Peripheral IV. Pump/Drip Flow = 0 ml/hr using NaCl .9 with 16:44:27 a concentration of 500 in 100 ml. Ordered by Vicente Gunn. A CATHETER, JSN, QUAD FR 5 was advanced vis Fem Vein (left) and placed in the CS. Placement was visually 16:46:12 confirmed under fluoroscopy. A CATHETER, JSN, QUAD FR 5 was advanced vis Fem Vein (left) and placed in the HIS. Placement wa s visually 16:47:28 confirmed under fluoroscopy. A CATHETER, JSN, QUAD FR 5 was advanced vis Fem Vein (left) and placed in the RVA. Placement wa s visually 16:49:09 confirmed under fluoroscopy. 16:51:16 Activated Clotting Time Drawn 16:52:15 CATHETER, ACUNAV FR10 ICE ([employer]) FR 10 Was Postioned. RV 16:53:40 Reference ECG taken 16:56:20 ACT (Normal Range 90-180) = 255 16:59:26 Glidewire inserted to 8fr. aterial sheath. 17:03:32 Wire removed A PIGTAIL STR. INFINITI CATHETER FR 5 was advanced over a wire. OMNIPAQUE, 350 MG, 50ML 50ML wa s used for 17:03:38 injections. Iliac injection, 10cc. A PIGTAIL STR. INFINITI CATHETER FR 5 was advanced over a wire. OMNIPAQUE, 350 MG, 50ML 50ML wa s used for 17:07:42 injections. 10cc iliac 17:08:47 A WIRE, 3MMJ .035 180CM 180CM was inserted via Fem Art (right). 17:09:21 Catheter was removed A SHEATH, FR8 24CM 8FR 24CM was exchanged in the Fem Art (right). This was necessary in order f or catheter 17:09:27 support. 17:12:00 SE nona HORNER. ALONSO in A CATHETER, THERMOCOOL NON-DORETHA TC D-F was advanced vis Fem Art (right) and placed in the RVA. P lacement was 17:14:03 visually confirmed under fluoroscopy. 17:17:48 mapping in progress 17:20:39 mapping complete 17:21:50 RF Ablation of the RV with a CATHETER, THERMOCOOL NON-DORETHA TC D-F. 17:24:12 Activated Clotting Time Drawn 17:27:45 ACT (Normal Range 90-180) = 229 17:28:22 2000 units HEPARIN given in lab by Anesthesia, MEDIA REPORTER via Peripheral IV. Ordered by Yimi Gunn. 17:31:13 EP study in progress 17:34:20 Ventricular tachycardia induced. 17:34:21 RF Ablation of the RV with a CATHETER, THERMOCOOL NON-DORETHA TC D-F. 17:38:45 ECG rhythm of VT noted. Patient cardioverted at 300 joules. Success. NSR noted after cardio version complete 17:39:24 Activated Clotting Time Drawn 17:40:40 EP study in progress 17:42:00 ACT (Normal Range 90-180) = 284 17:42:09 Ventricular tachycardia induced. 17:42:10 RF Ablation of the RV with a CATHETER, THERMOCOOL NON-DORETHA TC D-F. 17:45:34 ECG rhythm of VT noted. Patient cardioverted at 300 joules. Success NSR noted after cardiov ersion complete 17:48:21 RF Ablation of the RV with a CATHETER, THERMOCOOL NON-DORETHA TC D-F. 17:57:19 Ventricular tachycardia induced. 18:05:48 Tachycardia broken spontaneously 18:13:10 EP study in progress 18:13:20 Ventricular tachycardia induced. 18:13:21 RF Ablation of the RV with a CATHETER, THERMOCOOL NON-DORETHA TC D-F. 18:19:05 PACU called. Spoke to Luis to notify that pt will be coming to them. Will call 15mins prior to arrival 18:22:40 Tachycardia broken spontaneously 18:25:02 Case End 18:26:13 Ablation procedure performed: VT. 18:26:24 EP Procedure was performed. 18:27:15 PACU called. Spoke to Luis. Will be up in 15-20mins and will pull sheaths in PACU 18:27:53 40 mg PROTAMINE given in lab by Anesthesia, MEDIA REPORTER via Peripheral IV. Ordered by Tristin Gunn 18:28:15 Catheter(s) removed without difficulty 18:28:17 Sheath(s) left in place, will be removed in Holding Area 18:29:30 Sterile dressing applied to site 18:29:35 No case complications noted. 18:29:36 Cine recording checked. 18:29:38 Bedside Report will be given. 18:31:27 Tachytherapy turned back on with settings of VVI [address] Gunn 18:35:13 Activated Clotting Time Drawn 18:37:47 Defibrillator and ground pads removed. Skin intact. 18:39:19 ACT (Normal Range 90-180) = 131 18:50:00 [facility] - Contrast Media Used In Study Contrast Total Opened (mL) Total Used (mL) Total Wasted (mL) Omnipaque 50 20 30 End Study - Maximum Contrast Load Max Contrast Load (mL) 262.5 End Study - Radiation Exposure Fluoro Time (minutes) 25.1 End Study - Patient Disposition Complications Transferred To Interventional Outcome No Telemetry Bed successful
[2017-02-03] MEDS ORDERED: DO NOT ADM ANY ANTICOAGULANT DRUGS PRN ×2 (19:04→20:00)
[2017-02-03] MEDS ORDERED: ATROPINE SULFATE 1 MG/ML VIAL IV PRN (19:15)
[2017-02-03] MEDS ORDERED: METOCLOPRAMIDE HCL 10 MG/2 ML VIAL IV PRN (19:15)
[2017-02-03] MEDS ORDERED: SODIUM CHLOR 0.9% 250 ML INJ 250 ML IV PRN (19:15)
[2017-02-03] MEDS ORDERED: LIDOCAINE HCL 1% 50 ML VIAL INFIL PRN (19:15)
[2017-02-03] MEDS ORDERED: ONDANSETRON HCL 4 MG/2 ML VIAL IV PRN (19:15)
[2017-02-03] MEDS ORDERED: oxyCODONE/ACETAMINOPHEN 5 MG/325 MG TAB PO PRN ×2 (19:15)
[2017-02-03] MEDS ORDERED: LORazepam 2 MG/ML VIAL IV PRN (19:15)
[2017-02-03] MEDS ORDERED: BACITRACIN OINT 0.9 GM PKT TOP ONE (19:15)
--- NOTE | 2017-02-03 20:22 | EKG ---
Date Performed: 02/03/2017 Time Performed: 19:48:03 PTAGE: 76 years EKG: Sinus rhythm WITH HIGH GRADE AV BLOCK INTRAVENTRICULAR CONDUCTION DELAY PROBABLE INFERIOR MYOCARDIAL INFARCTION , OF INDETERMINATE AGE Ventricular demand pacemaker ABNORMAL ECG COMPARED TO PRIOR ELECTROCARDIOGRAM, Dual-chamber pacemaker is present. PREVIOUS TRACING : 02/02/2017 17.13 DOCTOR: Jaylen Gibbs Interpretating Date/Time 02/03/2017 20:20:34
[2017-02-03] MEDS: ATORVASTATIN 20 MG TAB PO SCH (21:28)
[2017-02-04] VITALS (26 sets, daily range): BP systolic 93–142; BP diastolic 50–68; PULSE 46–74; RESP 15–20; TEMP 97.5–98.5; O2SAT 95–99
[2017-02-04 07:02] LABS: APTT (PATIENT) 24.6 SEC (24.3-30.1); PROTHROMBIN TIME - PATIENT 11.1 SEC (9.8-11.6)
[2017-02-04 07:35] LABS: BICARBONATE 25.8 MEQ/L (21.0-32.0); MAGNESIUM 2.3 MG/DL (1.5-2.5); POTASSIUM 4.3 MEQ/L (3.5-5.1)
--- NOTE | 2017-02-04 07:49 | HHI.PR ---
Subjective Remarks no defibrillation since admission Objective Vitals heart reg lung cta abd s/nt ext no edema Vital Signs Date Time Temp Pulse Resp B/P Pulse Ox O2 Delivery O2 Flow Rate FiO2 02/04/17 06:00 60 02/04/17 06:00 58 125/64 98 02/04/17 05:00 62 02/04/17 04:00 70 02/04/17 03:00 54 119/62 97 02/04/17 03:00 98.5 54 16 119/62 98 02/04/17 03:00 53 02/04/17 02:00 46 02/04/17 02:00 55 116/63 98 02/04/17 01:00 46 02/04/17 01:00 47 93/50 97 02/04/17 00:00 54 117/65 98 02/04/17 00:00 58 02/03/17 23:00 98.2 51 18 103/52 97 02/03/17 23:00 63 02/03/17 22:45 54 115/59 97 02/03/17 22:15 52 114/63 97 02/03/17 22:00 62 02/03/17 21:45 68 137/71 98 02/03/17 21:15 64 139/74 97 02/03/17 21:00 52 02/03/17 20:45 66 123/56 97 02/03/17 20:30 60 113/70 96 02/03/17 20:15 50 113/70 96 02/03/17 20:00 97.5 57 18 121/63 95 02/03/17 20:00 55 121/63 95 02/03/17 19:45 42 02/03/17 19:45 42 16 119/71 96 Nasal Cannula 3 02/03/17 19:30 43 16 122/76 96 Nasal Cannula 3 02/03/17 19:15 53 16 139/72 94 Nasal Cannula 3 02/03/17 19:00 52 16 137/61 94 Nasal Cannula 3 02/03/17 18:56 96.7 53 16 146/65 94 Nasal Cannula 3 02/03/17 15:00 75 02/03/17 15:00 97.8 70 18 145/80 97 02/03/17 14:00 70 02/03/17 13:00 72 02/03/17 12:00 64 02/03/17 11:00 60 02/03/17 11:00 97.9 71 20 126/69 99 02/03/17 10:00 70 02/03/17 09:00 64 02/03/17 08:00 72 02/03/17 02/03/17 02/04/17 15:00 23:00 07:00 Intake Total 1780 ml 480 ml Output Total 525 ml 350 ml Balance 1255 ml 130 ml Intake Oral 480 ml 480 ml IV Total 100 ml Other 1200 ml Output Urine Total 425 ml 350 ml Estimated Blood Loss 100 ml Other 0 ml Result Diagram: 02/02/17 1730 02/04/17 0620 Imaging Last 72 hours Impressions Chest X-Ray 02/02/17 1720 Signed Impressions: Service Date/Time: Thursday, February 02, 2017 17:33 - CONCLUSION: 1. Cardiomegaly. 2. No acute focal pulmonary infiltrate or pulmonary vascular congestion. 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 currently paced on monitor last firing was on way to ED. await further management per Dr Gunn going for pm/aicd upgrade today. cont current meds. d/c when ok with cardiology (2) Renal insufficiency Status: Acute Plan: shorty improved with ivf. monitor. (3) Hypertension Status: Chronic Plan: resume home meds monitor (4) Dyslipidemia Status: Chronic Plan: Continue medication. (5) Prediabetes Status: Chronic Plan: No longer on metformin. Problem Qualifiers (1) Disorder of defibrillator function: Qualified Code: T82.198D - Disorder of defibrillator function, subsequent encounter Lakhwinder Sommers MD Feb 04, 2017 07:49
--- NOTE | 2017-02-04 07:52 | EKG ---
Date Performed: 02/04/2017 Time Performed: 04:55:10 PTAGE: 76 years EKG: Probable Sinus rhythm with marked first degree AV block --- Suspect arm lead reversal - only aVF, V1-V6 analyzed --- IV co nduction defect Possible inferior infarct - age undetermined Possible anterior infarct - age undeterm ined Possible left ventricular hypertrophy Lateral ST-T changes may be due to hypertrophy and/or isch emia Abnormal ECG Would repeat electrocardiogram because of possible lead reversal PREVIOUS TRACING : 02/03/2017 19.48 DOCTOR: Jaylen Gibbs Interpretating Date/Time 02/04/2017 07:51:45
[2017-02-04] MEDS: AMIODARONE 200 MG TAB PO SCH ×2 (09:01→21:13)
[2017-02-04] MEDS: ASPIRIN 81 MG CHEW TAB CHEW SCH (09:01)
[2017-02-04] MEDS: MULTIVITAMIN TAB PO SCH (09:01)
[2017-02-04] MEDS: LISINOPRIL 10 MG TAB PO SCH (09:01)
[2017-02-04] MEDS: MAGNESIUM OXIDE 400 MG TAB PO SCH (09:01)
[2017-02-04] MEDS ORDERED: MUPIROCIN 2% OINT 1 APPLIC/GM SYR NASAL SCH (19:45)
[2017-02-04] MEDS ORDERED: CHLORHEXIDINE GLUCONATE 2 % 1 PACK (2 CLOTHS) TOP SCH (19:45)
[2017-02-04] MEDS ORDERED: POVIDONE IODINE 5% (ANTISEPSIS KIT) 4 APPLICATIONS EACH NARE SCH (19:45)
--- NOTE | 2017-02-04 19:45 | HHI.PR ---
Subjective Remarks Feeling better Objective Vital Signs Date Time Temp Pulse Resp B/P Pulse Ox O2 Delivery O2 Flow Rate FiO2 02/04/17 17:00 48 02/04/17 16:13 98.2 70 15 120/62 97 02/04/17 16:00 54 02/04/17 15:00 72 02/04/17 14:00 60 02/04/17 13:00 62 02/04/17 12:16 97.5 64 18 106/56 95 02/04/17 12:00 60 02/04/17 11:00 72 02/04/17 10:00 72 02/04/17 09:04 98.2 70 17 142/68 97 02/04/17 09:00 74 02/04/17 08:00 68 02/04/17 07:00 62 02/04/17 06:00 60 02/04/17 06:00 58 125/64 98 02/04/17 05:00 62 02/04/17 04:00 70 02/04/17 03:00 54 119/62 97 02/04/17 03:00 98.5 54 16 119/62 98 02/04/17 03:00 53 02/04/17 02:00 46 02/04/17 02:00 55 116/63 98 02/04/17 01:00 46 02/04/17 01:00 47 93/50 97 02/04/17 00:00 54 117/65 98 02/04/17 00:00 58 02/03/17 23:00 98.2 51 18 103/52 97 02/03/17 23:00 63 02/03/17 22:45 54 115/59 97 02/03/17 22:15 52 114/63 97 02/03/17 22:00 62 02/03/17 21:45 68 137/71 98 02/03/17 21:15 64 139/74 97 02/03/17 21:00 52 02/03/17 20:45 66 123/56 97 02/03/17 20:30 60 113/70 96 02/03/17 20:15 50 113/70 96 02/03/17 20:00 97.5 57 18 121/63 95 02/03/17 20:00 55 121/63 95 02/03/17 19:45 42 02/03/17 19:45 42 16 119/71 96 Nasal Cannula 3 I/O 02/03/17 02/03/17 02/03/17 02/04/17 02/04/17 02/04/17 07:00 15:00 23:00 07:00 15:00 23:00 Intake Total 1003 ml 1780 ml 480 ml Output Total 150 ml 525 ml 350 ml Balance 853 ml 1255 ml 130 ml Intake Oral 480 ml 480 ml 480 ml IV Total 523 ml 100 ml Other 1200 ml Output Urine Total 150 ml 425 ml 350 ml Estimated Blood Loss 100 ml Other 0 ml Result Diagram: 02/02/17 1730 02/04/17 0620 Imaging Alert, fully oriented Lungs: ventilated Heart: S1, S2 regular, no gallop Abdomen: soft, no mass Ext: no edema Last Impressions Chest X-Ray 02/02/17 172 Signed Impressions: Service Date/Time: Thursday, February 02, 2017 17:33 - CONCLUSION: 1. Cardiomegaly. 2. No acute focal pulmonary infiltrate or pulmonary vascular congestion. Duncan Ortiz MD Current Medications Medications (Trade) Dose Ordered Sig/Lisa Route Start Time Stop Time Status Last Admin (NS Flush) 2 ml UNSCH PRN IVF 02/02/17 17:30 (Restoril) 15 mg HS PRN PO 02/02/17 20:30 02/03/17 21:28 (Cordarone) 100 mg BID PO 02/02/17 21:00 02/04/17 09:01 (Aspirin Chew) 81 mg DAILY CHEW 02/03/17 09:00 02/04/17 09:01 (Lipitor) 20 mg HS PO 02/02/17 21:00 02/03/17 21:28 (Prinivil) 10 mg DAILY PO 02/03/17 09:00 02/04/17 09:01 (Mag-Ox) 400 mg DAILY PO 02/03/17 09:00 02/04/17 09:01 (Theragran) 1 tab DAILY PO 02/03/17 09:00 02/04/17 09:01 Miscellaneous 1 ea 1 ea UNSCH PRN OTHER 02/02/17 20:45 Sodium Chloride 500 ml @ 30 mls/hr CONTINUOUS IV 02/03/17 13:00 02/03/17 13:53 (NS 500 ml Inj) 500 ml @ 30 mls/hr CONTINUOUS IV 02/03/17 13:00 (Percocet 5-325 Mg) 1 tab Q4H PRN PO 02/03/17 19:15 (Percocet 5-325 Mg) 2 tab Q4H PRN PO 02/03/17 19:15 (Atropine Inj) 0.5 mg UNSCH PRN IV 02/03/17 19:15 (Reglan Inj) 10 mg Q4H PRN IV 02/03/17 19:15 (Zofran Inj) 4 mg Q4H PRN IV 02/03/17 19:15 Miscellaneous Information ALL NURSING DEPARTME... UNSCH PRN .XX 02/03/17 19:04 Assessment and Plan Problem List: (1) Congestive heart failure Status: Acute Plan: CHF III. RV pacing over 40%. ND over 400ms On optimal medical management. Lisinopril DC. Entresto added. EF 10-15% ICD will be upgraded tomorrow to BIV ICD Patient understand the risks, the nature and benefits of the procedure. He understand and agree to proceed (2) Ventricular tachyarrhythmia Status: Acute Plan: SP VT ablation. Doing better. No new episode reported (3) Defibrillator discharge Status: Acute Plan: No new defib shock reported Vicente Gunn MD Feb 04, 2017 19:45
[2017-02-04] MEDS: ATORVASTATIN 20 MG TAB PO SCH (21:13)
[2017-02-04] MEDS: TEMAZEPAM 15 MG CAP PO PRN (21:44)
[2017-02-05] VITALS (24 sets, daily range): BP systolic 118–140; BP diastolic 56–73; PULSE 46–74; RESP 16–19; TEMP 98.2–98.8; O2SAT 97–98
--- NOTE | 2017-02-05 08:23 | HHI.PR ---
Subjective Remarks feels better. Objective Vitals heart reg lung cta abd s/nt ext no edema Vital Signs Date Time Temp Pulse Resp B/P Pulse Ox O2 Delivery O2 Flow Rate FiO2 02/05/17 08:08 98.2 61 16 124/58 97 02/05/17 06:00 59 02/05/17 05:00 54 02/05/17 04:00 54 02/05/17 03:00 98.8 60 18 140/73 98 02/05/17 03:00 46 02/05/17 03:00 98 Nasal Cannula 2.00 02/05/17 02:00 48 02/05/17 01:00 47 02/05/17 00:00 57 02/04/17 23:00 48 02/04/17 23:00 97.8 59 16 129/67 99 02/04/17 23:00 99 Nasal Cannula 2.00 02/04/17 22:00 59 02/04/17 21:00 48 02/04/17 20:00 50 02/04/17 19:00 98.1 66 20 122/65 98 02/04/17 19:00 54 02/04/17 19:00 98.1 66 20 122/65 98 02/04/17 17:00 48 02/04/17 16:13 98.2 70 15 120/62 97 02/04/17 16:00 54 02/04/17 15:00 72 02/04/17 14:00 60 02/04/17 13:00 62 02/04/17 12:16 97.5 64 18 106/56 95 02/04/17 12:00 60 02/04/17 11:00 72 02/04/17 10:00 72 02/04/17 09:04 98.2 70 17 142/68 97 02/04/17 09:00 74 02/04/17 02/04/17 02/05/17 15:00 23:00 07:00 Intake Total 360 ml Output Total 350 ml Balance 10 ml Intake Oral 360 ml Output Urine Total 350 ml Result Diagram: 02/02/17 1730 02/04/17 0620 Imaging Last 72 hours Impressions Chest X-Ray 02/02/17 1720 Signed Impressions: Service Date/Time: Thursday, February 02, 2017 17:33 - CONCLUSION: 1. Cardiomegaly. 2. No acute focal pulmonary infiltrate or pulmonary vascular congestion. 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 currently paced on monitor last firing was on way to ED. await further management per Dr Gunn going for biv aicd upgrade today. cont current meds. d/c when ok with cardiology (2) Renal insufficiency Status: Acute Plan: shorty improved with ivf. monitor. (3) Hypertension Status: Chronic Plan: resume home meds monitor (4) Dyslipidemia Status: Chronic Plan: Continue medication. (5) Prediabetes Status: Chronic Plan: No longer on metformin. Problem Qualifiers (1) Disorder of defibrillator function: Qualified Code: T82.198D - Disorder of defibrillator function, subsequent encounter Lakhwinder Sommers MD Feb 05, 2017 08:23
[2017-02-05] MEDS: MULTIVITAMIN TAB PO SCH (09:49)
[2017-02-05] MEDS: ASPIRIN 81 MG CHEW TAB CHEW SCH (09:49)
[2017-02-05] MEDS: AMIODARONE 200 MG TAB PO SCH ×2 (09:49→21:35)
[2017-02-05] MEDS: MAGNESIUM OXIDE 400 MG TAB PO SCH (09:50)
[2017-02-05] MEDS ORDERED: IODIXANOL 320 MG/ML 50 ML VIAL (for Cath Lab) IV ONE (17:02)
--- NOTE | 2017-02-05 19:45 | CATHPROC ---
77 Group HIS Report Study Information Study Number Scheduled Start Study Start [id number] 02/05/2017 Feb 05 2017 1:30PM Referring Institution Admit Source Facility Department 1 Other [facility] Physician and Clinical Staff Initial Vicente Nava Cafeteria Supervisor Frances Wheat,BEAUTY CULTURE TEACHER Other Anesthesia, RESEARCH WORKER ENCYCLOPEDIA Recorder Petra Krueger,RN Recorder Niya Pelaez RN Scrub Bg Gaspar,RT(R) Procedures Performed Procedure Location (Site) Vessel Name Lead Insertion Venogram Subclav. Vein (Lft Subclavian Vein Wire insertion Subclav. Vein (Lft Subclavian Vein Equipment Time Woodworking Shop Hand Description Size Mfg Part Number Used/Scraped [id number] 18:48 [employer] WIRE, ASAHI GRANDSLAM 180CM 180CM Used *[id number] 97138-49 18:13 [employer] W[employer], ASAHI PROWATER 180CM 180CM Used *[id number] 51123-26 18:14 [employer] W[employer], ASAHI PROWATER 180CM 180CM Used *[id number] 31116-26 18:29 [employer] WIRE, ASAHI PROWATER 180CM 180CM Used *[id number] WIRE, BALANCE MIDDLEWEIGHT [id number] 18:37 [employer] 190CM Used 190CM *[id number] DEFIBRILLATOR, ITREVIA 7 HF-T 19:09 BIOTRONIK VDE-DDDRV [id number] Used QP DERMABOND, ADHESIVE SKIN [facility]12 13:33 CORDIS/PACER * Used GLUE MINI *[id number] DERMABOND, ADHESIVE SKIN [facility] 17:03 CORDIS/PACER * Used GLUE MINI *[id number] TP-1103 13:33 MEDLINE INDUSTRIES SUTURE, STRIP PLUS 1/2" * Used *[id number] TP-1103 17:03 MEDLINE INDUSTRIES SUTURE, STRIP PLUS 1/2" * Used *[id number] 17:03 MEDLINE PACER DECKER, LIMB * 2530 *[id number] Used 13:33 MEDLINE PACER DECKER, LIMB * 2530 *[id number] Used [id number] 17:03 MEDLINE PACER PACK, PACER CUSTOM * Used *[id number] 13:33 MEDLINE PACER PACK, PACER CUSTOM * Used *[id number] 17:51 [facility] MEDICAL WIRE, 3MMJ .035 180CM 180CM Used *[id number] 17:04 [employer] PACER SAFE SHEATH, FR9, 13CM FR 9 [id number] Used 17:59 Needle Sponge Count 1 111 Used 18:00 Needle Sponge Count 20 200 Used 18:00 Needle Sponge Count 4 44 Used 18:00 Needle Sponge Count 4 4 Used 17:57 [employer]COMED OMNIPAQUE, 350 MG, 50ML 50ML [id number] Used SUTURE, 0 ETHIBOND [CT1] (CX21D), 8pk SUTURE, 0 ETHIBOND [CT1] (CX21D), 8pk SUTURE, 2-0 VICRYL [CT1] (PBU293B) SUTURE, 2-0 VICRYL [CT1] (DXD614X) SUTURE, 2-0 VICRYL [CT1] (BBI165Y) SUTURE, 2-0 VICRYL [CT1] (UBP224R) [id number] 17:03 [employer],WARM AIR CCL * Used *[id number] [id number] 13:33 [employer] BL[employer],WARM AIR CCL * Used *[id number] 17:51 [facility] LIVEWIRE, QUAD, MED SWEEP FR 6 [id number] Used [facility] PAD, ELECTROSURGICAL 13:33 * [id number] *[id number] Used SURGICAL GROUNDING ORANGE [facility] PAD, ELECTROSURGICAL 17:03 * E7507 *[id number] Used SURGICAL GROUNDING ORANGE LEAD, ATTAIN PERFORMA 18:29 [employer] 88CM 4398-88CM Used STRAIGHT, 88CM 17:11 [employer] PLASMABLADE, PEAD 3.0S * [id number] Used [id number] 17:03 [employer]. ELECTRODE, PRO-PADZ BIPHASIC * Used *25964 6271-0166 13:33 [employer]. ELECTRODE, PRO-PADZ BIPHASIC * Used *39835 Equipment Model, Serial, Lot Number and Expiration Data Description Model Number Serial Number Lot Number Expiration Date LEAD, ATTAIN PERFORMA 4398-88 CM [id number] 08-19-2018 STRAIGHT, 88CM History: Allergies Allergy Reaction Corticosteroids History: Risk Factors Hypertension Dyslipidemia Yes Yes Prior PCI Prior PCIDate Prior CABG Prior CABGDate Yes 08/24/2006 Yes 08/24/2011 Labs Hgb (g/dl) Hct (%) WBC (l/cumm) Platelets (thousands) 12.00-18.00 37.00-55.00 4.80-10.80 140.00-450.00 14.0 43 11.9 187 Glucose (mg/dl) BUN (mg/dl) Creatinine (mg/dl) BUN:Creatinine (1:x) 60.00-110.00 8.00-20.00 0.10-9.00 10.00-20.00 115 21 1.5 14 Na (meq/l) K (meq/l) 138.00-146.00 3.80-5.10 144 4.3 INR (PTT:PT) 0.50-2.00 1 Medication Medication Total Dose (Bolus/Oral) Medication Total Dosage/Unit 2% XYLOCAINE 50 mL Medications (Bolus/Oral) Medication Time Given Dosage/Unit Administered By Reason 2% XYLOCAINE 02/05/2017 5:38:20 PM 50 mL Vicente Gunn 50 mL 2% XYLOCAINE given in lab by Vicente Gunn in Left shoulder via Subcutaneous. left upper chest Medication (Drip) Medication Time Given Dosage/Unit Concentration/Unit Diluent (ml) Solution ANCEF 02/05/2017 5:24:00 PM 2 g 2 g ANCEF given in lab by Anesthesia, RESEARCH WORKER ENCYCLOPEDIA via Peripheral IV. Ordered by Vicente Gunn. VANCOMYCIN DRIP 02/05/2017 5:24:15 PM 1 g 1 g VANCOMYCIN DRIP given in lab by Anesthesia, RESEARCH WORKER ENCYCLOPEDIA via Peripheral IV. Ordered by Vicente Gunn. Initial Case Assessment Cardiovascular HR Rhythm NIBP Chest Pain 60 SR W/ PVC 138/68 0 Edema Present Skin color Skin None Normal Warm Dry Circulatory - Right Pulses Dorsalis Pedis 1 Scale (0,1,2,3,4,d) Circulatory - Left Pulses Dorsalis Pedis 1 Scale (0,1,2,3,4,d) Neurological State Oriented to time-place- Alert Moves all extremities person Respiration - General Respiration Rate SpO2 (%) (B/min) 18 98 Final Case Assessment Chronological Log Time Study Chronological Log 17:02:38 Patient arrived via Bed. 17:02:40 Patient Name, D.O.B, / Armband Verified By R.N. 17:02:41 Consent signed by the physician and the patient and verified by the [facility] staff. 17:02:42 Pre-op and post- op instructions given; patient acknowledges understanding of instructions. 17:02:45 Presedation assessment performed by [facility] RN. 17:02:49 Anesthesia at bedside. Assumes care of patient.josué huynh 17:24:00 2 g ANCEF given in lab by Anesthesia, RESEARCH WORKER ENCYCLOPEDIA via Peripheral IV. Ordered by Vicente Gunn. 17:24:15 1 g VANCOMYCIN DRIP given in lab by Anesthesia, RESEARCH WORKER ENCYCLOPEDIA via Peripheral IV. Ordered by Zarina Gunn. First Sponge And Instrument Count Done by Vicente Gunn. 17:34:00 Hypo's: 4, Sponges: 20, Bovie/scratch: 1 Sutures: 10, Blades: 1, Instruments: 26, Syveck Patches: 0 17:34:25 Patient has been NPO for More than 6Hrs. 17:34:28 Skin Breakdown- none per patient 17:34:40 Disposable Defibrillator Pads Placed On Patient. 17:34:40 Robert Prominences Protected 17:34:41 IV Warmer Connected To Patient. 17:34:42 A # 20 IV was noted in the Forearm (right). Grade = 0 17:34:53 A # 20 IV was noted in the Forearm (left). Grade = 0 17:35:03 History and physical on the chart or being dictated. Assessment: Initial Case, HR=60 BPM, Rhythm=SR W/ PVC, RYYZ=793/68 mmhg, Chest Pain=0, Edema=No ne, Color=Normal, Skin = Warm, Dry Right Pulses: Sulaiman Ped=1 17:35:04 Left Pulses: Sulaiman Ped=1 Neurological: State=Alert, Ox3, JESUS Respiration: Resp=18 B/min, SpO2=98 % Time Out. Correct patient, procedure, procedure equipment, site and side verified with physicia n present. Time 17:37:10 concurred by MD, individual staff and RESEARCH WORKER ENCYCLOPEDIA. Time Out #2 - Consents verified, patient in correct position, all results are labled and displa yed, safety precautions 17:37:50 taken, antibiotics administered. Time out concurred by MD, individual staff and RESEARCH WORKER ENCYCLOPEDIA in procedu re 17:37:56 Case Start 17:38:20 50 mL 2% XYLOCAINE given in lab by Vicente Gunn in Left shoulder via Subcutaneous. left up per chest 17:39:10 Surgical Incision Made. 17:39:50 Bovie ground pad applied to: RIGHT THIGH 17:39:55 2% CHLORHEXIDINE GLUCONATE WASH AND NASAL SWIPE DONE PRIOR TO PROCEDURE. 17:40:00 A device was explanted. 17:41:00 A SAFE SHEATH, FR9, 13CM FR 9 was advanced into the Subclav. Vein (Lft using the Modified S eldinger technique. 17:41:59 A WIRE, 3MMJ .035 180CM 180CM was inserted via Subclav. Vein (Lft. 17:42:12 A WIRE, 3MMJ .035 180CM 180CM was inserted via Subclav. Vein (Lft. 17:54:55 The Subclav. Vein (Lft was manually injected with 8 cc's of contrast. OMNIPAQUE, 350 MG, 50 ML 50ML used. A LIVEWIRE, QUAD, MED SWEEP FR 6 was advanced vis Subclav. Vein (Lft and placed in the CS. Plac ement was 17:57:31 visually confirmed under fluoroscopy. 17:57:48 Lead placement verified under fluoroscopy 17:59:00 A WIRE, ASAHI PROWATER 180CM 180CM was inserted via Subclav. Vein (Lft. 18:01:25 A implantable was inserted and positioned in the CS/LV. 18:01:34 Lead placement verified under fluoroscopy 18:11:53 The CS/LV lead impedance and threshold is being tested. 18:12:36 LIVEWIRE REMOVED 18:14:45 A WIRE, ASAHI PROWATER 180CM 180CM was inserted via Subclav. Vein (Lft. 18:22:50 1ST LEAD REMOVED A LIVEWIRE, QUAD, MED SWEEP FR 6 was advanced vis Subclav. Vein (Lft and placed in the CS. Plac ement was 18:24:57 visually confirmed under fluoroscopy. 18:30:52 A WIRE, ASAHI PROWATER 180CM 180CM was inserted via Subclav. Vein (Lft. 18:31:15 A LEAD, ATTAIN PERFORMA STRAIGHT, 88CM 88CM was inserted and positioned in the CS/LV. 18:41:27 LEAD REMOVED 18:46:27 A LEAD, ATTAIN PERFORMA STRAIGHT, 88CM 88CM was inserted and positioned in the CS/LV. 18:46:36 Lead placement verified under fluoroscopy 18:46:37 The CS/LV lead impedance and threshold is being tested. 19:09:29 The CS/LV lead was sutured to the fascia. First Sponge And Instrument Count Done by Vicente Gunn. 19:20:10 Hypo's: 4, Sponges: 20, Bovie/scratch: 1 Sutures: 11, Blades: 1, Instruments: 26, Syveck Patches: 0 19:22:00 A DEFIBRILLATOR, ITREVIA 7 HF-T QP VDE-DDDRV was connected and placed in the pocket. 19:25:00 Pocket flushed with antibiotic solution 19:26:25 The pocket was closed. 19:32:35 Case End FINAL Sponge And Instrument Count Done by Vicente Gunn. 19:35:34 Hypo's: 4, Sponges: 20, Bovie/scratch: 1 Sutures: 10, Blades: 1, Instruments: 26, Syveck Patches: 0 19:36:38 Implant Procedure was performed. 19:36:45 A Bivent ICD Implant . (Dual) UP GRADE ICD TO BIV-ICD ADDED LEAD AND DEVICE 19:37:14 Steri-strips and a sterile dressing applied to site. 19:37:22 Assessment: Final Case 19:37:26 No case complications noted. 19:37:28 Cine recording checked. 19:37:29 Bedside Report will be given. 19:37:30 Implantable Device card placed in patient's chart. 19:39:47 [facility]IC called. Spoke to RANDI 19:40:03 Defibrillator and ground pads removed. Skin intact. End Study - Contrast Media Used In Study Contrast Total Opened (mL) Total Used (mL) Total Wasted (mL) Omnipaque 10 10 0 End Study - Maximum Contrast Load Max Contrast Load (mL) 286.7 End Study - Radiation Exposure Fluoro Time (minutes) 34.4 End Study - Patient Disposition Complications Transferred To Interventional Outcome No Telemetry Bed successful
--- NOTE | 2017-02-05 21:10 | RADRPT ---
EXAM DATE/TIME: 02/05/2017 20:24 [place] COMPARISON: CHEST SINGLE AP, February 02, 2017, 17:33. INDICATIONS : Pneumothorax, post pacemaker. MEDICAL HISTORY : None. SURGICAL HISTORY : CABG. ENCOUNTER: Initial ACUITY: 1 day PAIN SCORE: 4/10 LOCATION: Bilateral chest FINDINGS: Left-sided cardiac pacer/defibrillator noted and it may have been changed out in the interim. The pro ximal leads are focally kinked. I don't see a pneumothorax. No infiltrate or effusion. Heart size stable, upper limits of normal. Previous median sternotomy/CABG changes are again noted. CONCLUSION: Left-sided cardiac pacer/defibrillator with kinked proximal leads. No pneumothorax or other acute com plication demonstrated. Tahir Hernandez MD on February 05, 2017 at 21:05 Board Certified Radiologist. This report was verified electronically.
[2017-02-05] MEDS: ATORVASTATIN 20 MG TAB PO SCH (21:34)
[2017-02-05] MEDS: SACUBITRIL/VALSARTAN 24 MG-26 MG TAB PO SCH (21:34)
[2017-02-06] VITALS (14 sets, daily range): BP systolic 113–139; BP diastolic 50–62; PULSE 68–76; RESP 18; TEMP 99–99.6; O2SAT 96–97
[2017-02-06] MEDS: ceFAZolin 2 GM PREMIX 50 ML IV SCH ×2 (01:33→08:10)
[2017-02-06] MEDS ORDERED: PROPOFOL 200 MG/20 ML AMP IV ONE (08:01)
[2017-02-06] MEDS: MAGNESIUM OXIDE 400 MG TAB PO SCH (08:08)
[2017-02-06] MEDS: ASPIRIN 81 MG CHEW TAB CHEW SCH (08:09)
[2017-02-06] MEDS: AMIODARONE 200 MG TAB PO SCH (08:09)
[2017-02-06] MEDS: MULTIVITAMIN TAB PO SCH (08:09)
[2017-02-06] MEDS: SACUBITRIL/VALSARTAN 24 MG-26 MG TAB PO SCH (08:09)
--- NOTE | 2017-02-06 08:29 | PD.CARD.PN ---
Subjective Subjective Remarks Feels okay. Status post VT ablation and upgrade to BIV ICD. Objective Medications Current Medications Medications (Trade) Dose Ordered Sig/Lisa Route Start Time Stop Time Status Last Admin (NS Flush) 2 ml UNSCH PRN IVF 02/02/17 17:30 (Restoril) 15 mg HS PRN PO 02/02/17 20:30 02/04/17 21:44 (Cordarone) 100 mg BID PO 02/02/17 21:00 02/06/17 08:09 (Aspirin Chew) 81 mg DAILY CHEW 02/03/17 09:00 02/06/17 08:09 (Lipitor) 20 mg HS PO 02/02/17 21:00 02/05/17 21:34 (Mag-Ox) 400 mg DAILY PO 02/03/17 09:00 02/06/17 08:08 (Theragran) 1 tab DAILY PO 02/03/17 09:00 02/06/17 08:09 Miscellaneous 1 ea 1 ea UNSCH PRN OTHER 02/02/17 20:45 Sodium Chloride 500 ml @ 30 mls/hr CONTINUOUS IV 02/03/17 13:00 02/03/17 13:53 (NS 500 ml Inj) 500 ml @ 30 mls/hr CONTINUOUS IV 02/03/17 13:00 (Percocet 5-325 Mg) 1 tab Q4H PRN PO 02/03/17 19:15 (Percocet 5-325 Mg) 2 tab Q4H PRN PO 02/03/17 19:15 (Atropine Inj) 0.5 mg UNSCH PRN IV 02/03/17 19:15 (Reglan Inj) 10 mg Q4H PRN IV 02/03/17 19:15 (Zofran Inj) 4 mg Q4H PRN IV 02/03/17 19:15 Miscellaneous Information ALL NURSING DEPARTME... UNSCH PRN .XX 02/03/17 19:04 Sacubitril/ Valsartan 1 tab 1 tab BID PO 02/05/17 21:00 02/06/17 08:09 (Ancef 2 Gm Premix) 50 ml @ 100 mls/hr Q8H IV 02/06/17 01:00 02/06/17 17:29 02/06/17 08:10 Vital Signs / I&O Vital Signs Date Time Temp Pulse Resp B/P Pulse Ox O2 Delivery O2 Flow Rate FiO2 02/06/17 06:06 70 02/06/17 05:00 70 02/06/17 04:00 70 02/06/17 03:00 99.0 70 18 130/60 96 02/06/17 03:00 70 02/06/17 02:10 70 02/06/17 01:00 70 02/06/17 00:00 70 02/05/17 23:00 98.4 70 18 118/56 97 02/05/17 23:00 97 Room Air 02/05/17 23:00 70 02/05/17 22:00 70 02/05/17 21:00 70 02/05/17 20:00 70 02/05/17 16:46 98.4 62 18 135/72 02/05/17 16:46 98 Nasal Cannula 2.00 02/05/17 16:00 60 02/05/17 15:00 68 02/05/17 14:00 64 02/05/17 13:00 54 02/05/17 12:53 98 Nasal Cannula 2.00 02/05/17 12:00 48 02/05/17 11:30 98.5 64 19 125/62 98 02/05/17 11:00 52 02/05/17 10:23 Nasal Cannula 2.00 02/05/17 10:00 74 02/05/17 09:00 60 I/O 02/05/17 02/05/17 02/05/17 02/06/17 02/06/17 02/06/17 07:00 15:00 23:00 07:00 15:00 23:00 Intake Total 360 ml 530 ml Output Total 350 ml 150 ml Balance 10 ml 380 ml Intake Oral 360 ml 480 ml IV Total 50 ml Output Urine Total 350 ml 150 ml # Voids 2 Physical Exam GENERAL: Well-nourished, well-developed patient. SKIN: Warm and dry. Left chest wall incision well approximated without erythema or drainage. Groin sites soft without bruising or bleeding. HEAD: Normocephalic. EYES: No scleral icterus. No injection or drainage. NECK: Supple, trachea midline. No JVD or lymphadenopathy. CARDIOVASCULAR: Regular rate and rhythm without murmurs, gallops, or rubs. RESPIRATORY: Breath sounds equal bilaterally. No accessory muscle use. GASTROINTESTINAL: Abdomen soft, non-tender, nondistended. EXTREMITIES: No cyanosis, or edema. NEUROLOGICAL: Awake, alert, and oriented x 3. Non-focal. Imaging Last Impressions Chest X-Ray 02/05/17 0000 Signed Impressions: Service Date/Time: January 20:24 - CONCLUSION: Left-sided cardiac pacer/defibrillator with kinked proximal leads. No pneumothorax or other acute complication demonstrated. Tahir Hernandez MD Assessment and Plan Problem List: (1) Ventricular tachyarrhythmia Assessment and Plan: Stable, status post VT ablation. (2) S/P ICD (internal cardiac defibrillator) procedure Assessment and Plan: Previous ICD upgraded to BiV ICD. Stable for discharge from EP standpoint. Follow-up with Dr. Gunn in 2 weeks per my discussion with him. (3) Cardiomyopathy Assessment and Plan: Entresto initiated. Follow-up with Dr. Gunn for reevaluation for up titration of medication in 2 weeks. Assessment and Plan Discussed with patient, RN, Dr. Gunn. Problem Qualifiers (1) Cardiomyopathy: Qualified Code: I42.9 - Cardiomyopathy, unspecified type Eva Downs Feb 06, 2017 08:29
[2017-02-06] MEDS ORDERED: SACU1TAB PO (08:41)
--- NOTE | 2017-02-06 08:43 | HHI.DCPOC ---
Discharge Care Plan Diagnosis: (1) Disorder of defibrillator function (2) Ventricular tachyarrhythmia (3) S/P ICD (internal cardiac defibrillator) procedure Goals to Promote Your Health * To prevent worsening of your condition and complications * To maintain your health at the optimal level Directions to Meet Your Goals Take your medications as prescribed Follow your dietary instruction Follow activity as directed Keep your appointments as scheduled Take your immunizations and boosters as scheduled If your symptoms worsen call your PCP, if no PCP go to Urgent Care Center or Emergency Room Smoking is Dangerous to Your Health. Avoid second hand smoke Call the 24-hour hour crisis hotline for domestic abuse at Lakhwinder Sommers MD Feb 06, 2017 08:43
--- NOTE | 2017-02-06 08:47 | HHI.DS ---
Discharge Summary Admission Date Feb 02, 2017 at 18:21 Discharge Date: Feb 06, 2017 Admitting Diagnosis chest pain secondary to defibrillator firing (1) Ventricular tachyarrhythmia Diagnosis: Principal (2) Disorder of defibrillator function Diagnosis: Principal (3) Renal insufficiency Diagnosis: Principal (4) Hypertension Diagnosis: Secondary (5) Dyslipidemia Diagnosis: Secondary (6) Prediabetes Diagnosis: Secondary Brief History Patient with known history of coronary disease and status post defibrillator placement in April 2016 was sent by his sausage tier for admission to the hospital after his defibrillator has been firing intermittently over the past 2 weeks with or without exertion. He reports that he has had up to 18 firings of device in 1 day. Patient's was supposed have an ablation and pacemaker replaced per family today. Patient denies any symptoms currently, but notes that he does have chest pressure and pain when the defibrillator fires. Patient denies any chest pain, shortness breath, fever, nausea, vomiting, abdominal pain, or headaches. On my exam he is resting comfortably and having no pain whatsoever. He is just anxious to have the procedure done as he is understandably worried about the recurrent somewhat unpredictable firings of his device. CBC/BMP: 02/02/17 1730 02/04/17 0620 Significant Findings Laboratory Tests Test 02/04/17 06:20 Chloride Level 109 MEQ/L (98-107) Blood Urea Nitrogen 21 MG/DL (7-18) Creatinine 1.57 MG/DL (0.60-1.30) Estimat Glomerular Filtration 43 ML/MIN (>89) Rate Random Glucose 115 MG/DL (74-106) Calcium Level 8.0 MG/DL (8.5-10.1) Hospital Course aicd firing numerous times. Pt taken for EPS and VT induced and ablation performed. Pt then taken back to EP lab for biv aicd upgrade. His medication list was adjusted and entresto added per Dr Gunn. Pt given post procedure instruction sheet per Dr Gunn and will need to f/u in office 2 weeks. Pt Condition on Discharge: Stable Discharge Disposition: Discharge Home Discharge Instructions DIET: Follow Instructions for: Heart Healthy Diet Activities you can perform: See Additionl Instruction Other Activity Instructions: see Dr Gunn post procedure instruction sheet Follow up Referrals: Cardiology - 2 Weeks with Vicente Gunn MD New Medications: Sacubitril-Valsartan (Entresto) 24-26 Mg Tab 1 TAB PO BID Blood Pressure Management Days 30 TAB Continued Medications: Amiodarone (Amiodarone) 100 Mg Tab 100 MG PO BID Regulate Heart Beat #60 Ref 0 TAB Aspirin (Aspirin) 81 Mg Chew 81 MG CHEW DAILY Ref 0 TAB Atorvastatin (Atorvastatin) 20 Mg Tab 20 MG PO HS Cholesterol Management #30 Ref 0 TAB Fish Oil-Cholecalciferol (Fish Oil + D3) 1,200-1,000 Mg-Unit Cap 1 CAP PO DAILY Nutritional Supplement #30 Ref 0 CAP Furosemide (Furosemide) 20 Mg Tab 20 MG PO DAILY #30 Ref 0 TAB Magnesium Oxide (Magnesium Oxide) 400 Mg Tab 400 MG PO DAILY Nutritional Supplement Ref 0 TAB Multiple Vitamin (Multiple Vitamin) 1 Tab 1 TAB PO DAILY Nutritional Supplement Ref 0 TAB Discontinued Medications: Amlodipine (Amlodipine) 5 Mg Tab 5 MG PO DAILY Blood Pressure Management #30 Ref 0 TAB Carvedilol (Carvedilol) 6.25 Mg Tab 6.25 MG PO BID #60 Ref 0 TAB Lisinopril (Lisinopril) 10 Mg Tab 10 MG PO DAILY #30 Ref 0 TAB Metoprolol Tartrate (Metoprolol Tartrate) 100 Mg Tab 100 MG PO BID #60 Ref 0 TAB Lakhwinder Sommers MD Feb 06, 2017 08:47
--- NOTE | 2017-02-06 22:25 | EKG ---
Date Performed: 02/06/2017 Time Performed: 06:27:10 PTAGE: 76 years EKG: A-V sequential pacemaker Pacemaker rhythm - no further analysis Abnormal ECG PREVIOUS TRACING : 02/05/2017 21.09 DOCTOR: Vicnete Gunn Interpretating Date/Time 02/06/2017 22:24:16
--- NOTE | 2017-02-06 22:35 | EKG ---
Date Performed: 02/05/2017 Time Performed: 21:09:32 PTAGE: 76 years EKG: A-V sequential pacemaker Pacemaker rhythm - no further analysis Abnormal ECG PREVIOUS TRACING : 02/04/2017 04.55 DOCTOR: Vicente Gunn Interpretating Date/Time 02/06/2017 22:33:32
--- NOTE | 2017-02-08 08:55 | MP ---
cc: GERTRUDE COHEN M.D. DATE OF SURGERY: 02/05/2017 PROCEDURE PERFORMED Defibrillator removal, biventricular pacer defibrillator insertion, new LV lead, RA lead repositioned, that was a very complex and difficult case. INDICATION Mr. Lozano is a 76-year-old gentleman with congestive heart failure, ventricular tachycardia, previous defibrillator implanted, congestive heart failure class III, on optimal medical treatment, to undergo upgrade of biventricular pacer defibrillator. The risks, the nature and the benefit of the procedure are clearly stated to him and his family. The risks include pneumothorax, cardiac perforation, stroke and even . The patient understood and agreed to proceed. PROCEDURE After written informed consent was obtained, the patient was brought to the EP lab where he was prepped and draped in the usual sterile fashion. Conscious sedation was initiated and maintained throughout the procedure by anesthesiologist. Once sedation was verified, the left infraclavicular area over the existing generator was anesthetized with 2% Xylocaine. Using modified Seldinger technique, the left subclavian vein was cannulated on one occasion, one guidewire was advanced. Then using Bovie 3 cm incision was made over the existing generator. Dissection was then taken down to deep fascial layer. Once the generator was exposed it was removed from the pocket. Then the lead was dissected into the pocket. A 2-0 Vicryl suture was placed around the wire to prevent back bleeding. At this point over the wire a 9-Guyanese dilator and introducer was advanced. As dilator and wire were removed, a CS cannulation sheath was advanced. Through the sheath a quadripolar steerable catheter was advanced, after multiple manipulation, coronary sinus was cannulated. CS venography showed a small anterolateral branch and lateral branch coming from the great cardiac vein. I did cannulate the anterolateral branch, but then it was too small for the lead. I did try two different leads. Then after multiple manipulation I did cannulate the great cardiac vein for the lateral branch. At this point I did decannulate. I was unable to advance the lead. Then I decannulated the area. After multiple attempts the lateral branch was cannulated. The lead was advanced over the wire. After adequate pacing and sensing threshold was obtained, the cutter introducer was removed and the yadira introducer was removed and the lead was secured in the pocket using #2 Ethibond suture. At this point I did realize there is no capture in the RA lead. The RA lead suture was removed and a stylet was advanced, after multiple manipulation I Repositioned the right atrial lead. After adequate pacing and sensing threshold was obtained, the lead was secured in the pocket using #2 Ethibond suture. At that point the pocket was copiously irrigated using antibiotic solution. The defibrillator was removed and the biventricular pacer defibrillator was connected to the generator and placed into the pocket. Because of the patient's low EF and general medical condition, I did proceed with wound closure. The deep fascial layer was approximated using #2-0 Vicryl suture in a continuous fashion. The subcutaneous layer was approximated using #2-0 Vicryl suture in a continuous fashion. The subcuticular layer was approximated using with #2-0 Vicryl suture in a continuous fashion. Dermabond adhesive was applied to the wound followed by sterile pressure dressing. There was no complication. The patient tolerated the procedure. Blood loss was minimal. 1. Explanted hardware. Explanted hardware is Biotronik, serial number [id number]. 2. Implanted hardware. Implanted biventricular pacer defibrillator is a Biotronik, model number [id number], serial number [id number]. The implanted left ventricular pacing sensing lead is a Biotronik, model number [id number], serial number [id number]. Reposition right atrial lead is a Biotronik. 3. Threshold. The right atrial pacing threshold in bipolar mode was 1.2 volt at 0.4 milliseconds, lead impedance 654 ohms and P-wave is at 2 mV. The right ventricular pacing threshold in bipolar mode was 1.2 volts at 0.5 milliseconds, lead impedance 650 ohms, R-wave at 5.9 mV. The left ventricular pacing threshold in bipolar mode was 1.2 volt at 0.4 milliseconds. 4. Setting. The device is set in a DDD R70 upper limit 120 beats per minute. LV first by 40 milliseconds. Defibrillatory for three zone, one zone for ventricular tachycardia between 133-150 beats per minute. Initial therapy consists of 2 bursts of ATP at one at 81, one at 75 and then 2 ramp 10 millisecond decremental 10 pulse, both at 81%. The second zone for ventricular tachycardia number 2 is between 150-240 beats per minute. Initial therapy consists of one burst, 1 ramp 81% ten pulse 70-second decremental followed by 20 then 30 and a second shock at 40 joule defibrillatory shock. Third zone for ventricular fibrillation over 240 beats per minute. First therapy at 30 and a second shock at 40 joules defibrillatory shock. CONCLUSION Successful defibrillator removal, biventricular pacer defibrillator insertion, new LV lead, RA lead reposition. COMMENT AND RECOMMENDATION The patient is going to be transferred to the telemetry unit. He will be observed, when stable will be discharged home. MD CORBIN Lr/YAMINI /8:04 PM /8:28 AM
== END 2017-02-06 12:28 | disposition home or self-care (01) | DRG 227 ==
LOC: NEPC 16:47 → NEDA 18:21 → HCIS 20:27
PROVIDERS: ADMIT Hospitalist; ATTEND Hospitalist
PROC: 02583ZZ Destruction of Conduction Mechanism, Percutaneous Approach (ICD-10-PCS; 2017-02-03)
PROC: 0JH608Z Insertion of Defibrillator Generator into Chest Subcutaneous Tissue and Fascia, Open Approach (ICD-10-PCS; 2017-02-05)
PROC: 02H63KZ Insertion of Defibrillator Lead into Right Atrium, Percutaneous Approach (ICD-10-PCS; 2017-02-05)
PROC: 0JH609Z Insertion of Cardiac Resynchronization Defibrillator Pulse Generator into Chest Subcutaneous Tissue and Fascia, Open Approach (ICD-10-PCS; 2017-02-05)
PROC: 02PA3MZ Removal of Cardiac Lead from Heart, Percutaneous Approach (ICD-10-PCS; 2017-02-05)
PROC: 0JPT0PZ Removal of Cardiac Rhythm Related Device from Trunk Subcutaneous Tissue and Fascia, Open Approach (ICD-10-PCS; 2017-02-05)
PROC: 02HL3KZ Insertion of Defibrillator Lead into Left Ventricle, Percutaneous Approach (ICD-10-PCS; principal; 2017-02-05 14:00)
DX: I47.2 Ventricular tachycardia (principal); N17.9 Acute kidney failure, unspecified; I42.9 Cardiomyopathy, unspecified; I11.0 Hypertensive heart disease with heart failure; I50.9 Heart failure, unspecified; I25.10 Atherosclerotic heart disease of native coronary artery without angina pectoris; I25.2 Old myocardial infarction; E78.5 Hyperlipidemia, unspecified; Z95.1 Presence of aortocoronary bypass graft; Z95.5 Presence of coronary angioplasty implant and graft; R73.03 Prediabetes; Z87.891 Personal history of nicotine dependence
CPT/HCPCS: 33215; 33224; 33241; 33249; 71010; 80048; 80053; 83735; 84443; 85002; 85025; 85610; 85730; 92960; 93005; 93613; 93654; 93662; C1730; C1732; C1759; C1769; C1882; C1895; C2630; J0690; J1644; J1956; J3480; J7040; Q9967